=== PATIENT | male | born 1940 | race Caucasian/White ===

== ENCOUNTER 2022-11-25 07:38 | Emergency (ER) | payer OTHER, SELFPAY ==
[2022-11-25 07:40] VITALS: BP 138/82; PULSE 72; RESP 18; TEMP 36.6; O2SAT 98
[2022-11-25 07:55] VITALS: BP 135/79; O2SAT 98
--- NOTE | 2022-11-25 08:25 | ED.EXTPRO ---
HPI - Extremity Problem General Chief complaint: Extremity Problem,Nontraumatic Stated complaint: left hand infection Time Seen by Provider: 11/25/22 08:10 History of Present Illness HPI Narrative: 82-year-old male presented the emergency department for evaluation of a wound to his left hand. Patient states he was working on the yard and had a cut to his left hand. Patient was started Rocephin Sunday evening and took doses on and Sunday and states when he woke up this morning he noticed it had improved. Patient does complain of pain and swelling on the left lateral hand. Patient denies any pain extending into the fingers. Patient has normal range of motion. Related Data Allergies Allergy/AdvReac Type Severity Reaction Status Date / Time No Known Allergies Allergy Verified 11/25/22 07:54 Review of Systems Review of Systems: All systems reviewed & are unremarkable except as noted in HPI and below Exam Narrative: APPEARANCE: Well appearing, no pain, no distress, well-nourished. HEAD: normocephalic, atraumatic. EYES: PERRLA/EOMI, conjunctivae clear. NOSE: Normal no drainage NECK: Supple. No adenopathy, no masses. RESPIRATORY: Airway patent, respirations nonlabored. Clear to auscultation bilaterally, no rales, rhonchi, wheezing. CARDIOVASCULAR: Regular rate and rhythm without murmurs rubs or gallops. ABDOMINAL: Soft, nontender, nondistended, normal bowel sounds MUSCULOSKELETAL: Normal passive and active range of motion of the wrist and fingers, neurovascular intact NEURO: Alert. Cranial nerves II through XII intact. Good gait. Good coordination SKIN: Erythema over left lateral aspect of hand, no fluctuance, mild edema PSYCHIATRIC: Normal affect/mood. Course Course Emergency Course: 82-year-old male presented to ED for evaluation of infection of the left hand. Patient had been taking cephalexin and was switched to clindamycin. Patient was treated with an IV dose of clindamycin in the emergency department and then switched to p.o. clindamycin. Patient is afebrile and is not tachycardic. Patient was updated on the plan to change antibiotics and on reasons to return to the emergency department. All questions concerns were addressed. Vital Signs Vital signs: Vital Signs Temperature 97.8 F 11/25/22 07:40 Pulse Rate 72 11/25/22 07:40 Respiratory Rate 18 11/25/22 07:40 Blood Pressure 138/82 11/25/22 07:40 Pulse Oximetry 98 11/25/22 07:40 Oxygen Delivery Room Air 11/25/22 07:40 Temperature 97.8 F 11/25/22 07:40 Pulse Rate 66 11/25/22 09:40 Respiratory Rate 18 11/25/22 09:40 Blood Pressure 122/67 11/25/22 09:40 Pulse Oximetry 100 11/25/22 09:40 Oxygen Delivery Room Air 11/25/22 07:40 Discharge Plan Discharge Clinical Impression: Cellulitis Patient Disposition: Home, Self-Care Condition: Stable Instructions: Antibiotic Form, Cellulitis (ED) Additional Instructions: Stop taking the cephalexin. Start taking the clindamycin. Have close follow-up with your primary care physician. If you have any worsening symptoms then please call or return to the emergency department. Prescriptions: New clindamycin HCl 150 mg capsule 150 mg PO Q6H 10 Days Qty: 40 0RF Follow-up/Referrals: PHYSICIAN NOT ON STAFF,NONSTAFF [Primary Care Provider] -
[2022-11-25] MEDS: CLINDAMYCIN 600 MG/D5W 50 ML 600 MG/50 ML PIGGYBACK 100 MG IVPB (08:49)
[2022-11-25 09:40] VITALS: BP 122/67; PULSE 66; RESP 18; O2SAT 100
== END 2022-11-25 09:41 | disposition home or self-care (01) ==
PROVIDERS: Emergency Provider Emergency Medicine
DX: L03.114 Cellulitis of left upper limb (principal)
CPT/HCPCS: 96365; 96366; 99284

== ENCOUNTER → 2023-06-20 09:38 | Outpatient (CLI) | payer OTHER, SELFPAY ==
--- NOTE | ~2023-06-20 | MR_ITS ---
EXAMINATION: MR brain IAC wo/w con DATE: 06/20/2023 10:29 INDICATION: Sensorineural hearing loss bilaterally. TECHNIQUE: Magnetic resonance imaging (MRI) of the brain, brainstem, and internal auditory canals was performed without with 15 mL MultiHance intravenous contrast. COMPARISON: None. 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 There is an old lacunar infa rct in right caudate nucleus. There are scattered areas of nonspecific increased T2-weighted signal i ntensity in the cerebral white matter. There is no intracranial hemorrhage, acute infarction, or abno rmal intracranial mass lesion. The ventricles are normal in size. There are likely changes of ocular lens replacement surgeries. There is mild mucosal thickening in the paranasal sinuses. The internal a uditory canals, inner ears, and tympanic cavities are normal. The mastoid air cells are normal. IMPRESSION: 1. 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 2. Moderate nonspecific cerebral white matter disease, which likely represents chronic small vessel i schemic disease. Reviewed, dictated and finalized at location A. 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 2. Moderate nonspecific cerebral white matter disease, which likely represents chronic small vessel ischemic disease.
== END ==
PROVIDERS: PCP Nurse Practitioner Family; Visit Provider Nurse Practitioner Family
DX: H90.3 Sensorineural hearing loss, bilateral (principal); I25.2 Old myocardial infarction; R90.82 White matter disease, unspecified
CPT/HCPCS: 70553; A9577

== ENCOUNTER 2025-01-11 22:58 | Observation (INO) | payer OTHER, SELFPAY ==
--- NOTE | ~2025-01-11 | CT_ITS ---
CT of the Abdomen and Pelvis: Indication: Abdominal pain, GI bleed Technique: 2.5 mm axial scans were obtained through the abdomen and pelvis following intravenous adm inistration of 100 cc of Omnipaque 350. Dose reduction technique was used on this scan by utilizing a utomated exposure control and iterative reconstruction technique. The dose-length product (DLP) was 3 53.35 mGy-cm. Findings: Scans through the lung bases are unremarkable. The liver, spleen, adrenals and kidneys are within normal limits. Multiple gallstones are present. Po ssible 2 cm mildly enhancing mass at the tail of pancreas (axial image 44). No evidence of aortic ane urysm. No lymphadenopathy. No bowel obstruction or bowel wall thickening. Small fat-containing umbilical hernia present. Evidenc e of postoperative change the right colon. No definite evidence for active GI bleed identified.. Images through the pelvis were performed. Urinary bladder unremarkable. Prostate gland is markedly en larged. No ascites. Impression: No CT evidence for active GI bleed. Questionable 2 cm mass in the tail the pancreas. Follow-up pancreatic mass protocol CT or MR recommen ded. Cholelithiasis. Markedly enlarged prostate gland. Reviewed, dictated and finalized at location . Impression: No CT evidence for active GI bleed. Questionable 2 cm mass in the tail the pancreas. Follow-up pancreatic mass prot ocol CT or MR recommended. Cholelithiasis. Markedly enlarged prostate gland.
--- NOTE | ~2025-01-11 | MR_ITS ---
EXAMINATION: MR MRCP wo/w con/w 3D wo ind DATE: 01/13/2025 12:14 INDICATION: Pancreatic lesion TECHNIQUE: Magnetic resonance imaging (MRI) of the abdomen was performed without and with 14 mL Multi shaka intravenous contrast. Sequences included coronal T2-weighted SS-FSE, coronal T2-weighted FS SS- FSE, coronal T2-weighted FS FIESTA, axial T2-weighted FS FIESTA, axial T2-weighted FIESTA, sagittal T 2-weighted SS-FSE, axial T1-weighted dual-echo FSPGR, axial T2-weighted SS-FSE, axial T1-weighted LAV A, axial T2-weighted STIR FSE. Thick-slab T2-weighted FRFSE-XL images were obtained for magnetic reso nance cholangiopancreatography (MRCP). Rotating maximum intensity projection 3-D reconstructions of t he volumetric data were created by the technologist. Postcontrast sequences included a time course of axial T1-weighted LAVA. COMPARISON: CT dated 01/12/2025 FINDINGS: ABDOMEN MRI: Heart size is normal. No pericardial or pleural effusion. Scattered tiny lesions with absent signal i n the liver and spleen corresponding to calcified granulomata on the prior CT. There are several gall stones within the proximal gallbladder. No gallbladder wall thickening or pericholecystic inflammator y stranding to suggest acute cholecystitis bilateral adrenal glands are normal. There are few bilater al renal cysts the largest at the upper pole the left kidney measuring 2.1 cm. Pancreas is normal wit h homogeneous parenchymal signal and enhancement on all phases of the post contrast imaging. Status p ost right hemicolectomy with ileocolic anastomosis in the right upper quadrant. No bowel obstruction. No pathologically enlarged abdominal or upper pelvic lymphadenopathy. Small fat-containing umbilical hernia. Moderate to severe lumbar spondylosis. ABDOMEN MRCP: Common bile duct is normal in caliber measuring to 4-5 mm. No evident choledocholithiasis. No intrahe patic biliary ductal dilation. The main pancreatic duct also is normal measuring 2-2.5 mm in maximal diameter at the head of the pancreas. IMPRESSION: 1. Cholelithiasis relatively otherwise normal MRCP with no biliary ductal dilation or choledocholithi asis. 2. Normal pancreas with homogeneous parenchymal signal and enhancement. Specifically no mass identifi ed at the region of concern at the tail of the pancreas. 3. Small fat-containing umbilical hernia. Reviewed, dictated and finalized at location A. IMPRESSION: 1. Cholelithiasis relatively otherwise normal MRCP with no biliary ductal dilat ion or choledocholithiasis. 2. Normal pancreas with homogeneous parenchymal signal and enhancement. Specifi bertin no mass identified at the region of concern at the tail of the pancreas. 3. Small fat-containing umbilical hernia.
--- OUTSIDE RECORDS SUMMARY | 2025-01-11 22:59 | XMS_ITS | Clinical Summary ---
Author Organization [facility] Address [address] [place] [address] Care Team Providers Care Nutritional Services Host Name Role Phone Ame Stephen KimbleAngel Primary Care Provider [phone] iHna Diaz MD Unavailable [phone] Hina Diaz MD Unavailable [phone] Source Comments [facility],non-owned Affiliates and Associated Physician Practices is amultiple site organization consisting of ambulatory clinics and hospital sitesin [place], [place], [place] and [place]. This disclosure is being madepursuant to the Care Everywhere program and may not contain all information available regarding this patient. Last updated 18.[facility] Allergies No known active allergies Medications * Be aware that medications may not be up to date on this document. Alwaysverify current medications with the patient. mesalamine EC (ASACOL) 400 MG tablet Take 1,200 mg by mouth 2 times daily. Active finasteride (PROSCAR) 5 MG tablet Take 5 mg by mouth once daily. Active omeprazole (PRILOSEC) 40 MG capsule Take 40 mg by mouth daily before breakfast. 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/2017 Gastro-esophageal reflux disease without esophag itis 09/25/2017 Hypertrophy of prostate with urinary obstruction and other lower urinary tract symptoms (LUTS) 09/25/2017 Mixed hyperlipidemia 09/25/2017 Social History Tobacco Use Types Packs/Day Years Used Date Smoking Tobacco: Never Alcohol Use Standard Drinks/Week Comments Yes 0 (1 standard drink = 0.6 oz pur e alcohol) social Sex and Gender Information Value Date Recorded Sex Assigned at Not on file Legal Sex Male 5:50 AM PARAMEDIC RN Gender Identity Not on file Sexual Orientation Not on file Last Filed Vital Signs Vital Sign Reading Time Taken Comments Blood Pressure 121/70 09/16/2011 3:19 PM CDT Pulse 77 09/16/2011 3:19 PM CDT Temperature 36.7 C (98 F) 09/16/2011 3:19 PM CDT Respiratory Rate 18 09/16/2011 3:19 PM CDT Oxygen Saturation 98% 09/16/2011 3:19 PM CDT Inhaled Oxygen Concentration - - Weight 77.1 kg (170 lb) 05/08/2018 8:04 AM PARAMEDIC RN Height 165.1 cm (5' 5) 05/08/2018 8:04 AM PARAMEDIC RN Body Mass Index 28.29 05/08/2018 8:04 AM PARAMEDIC RN Plan of Treatment Health Maintenance Due Date Last Done Comments DTAP/TDAP/TD VACCINES (1 - Tdap) 1960 PNEUMOCOCCAL VACCINE 50+ (1 of 1 - PCV) 1991 ZOSTER VACCINE (1 of 2) 1991 Respiratory Syncytial Virus (RSV) Vaccine Pt: or over 60 yrs (1 - 1-dose 75+ series) 2016 COVID-19 VACCINE ( - season) 2024 04/18/2021, 08/24/2020, 08/03/2020 DEPRESSION SCREENING 06/11/2024 INFLUENZA VACCINE (#1) 2025 , 03/26/2017, 05/02/2016, Additional history exists HEPATITIS B VACCINE Aged Out No longe r eligible based on patient's age to complete this topic HIB VACCINE Aged Out No longer eligi ble based on patient's age to complete this topic HPV VACCINE Aged Out No longer eligi ble based on patient's age to complete this topic MENINGOCOCCAL (Group B) VACCINE SHARED DECISION-MAKING Aged Out No longer eligible based on patient's age to complete this topic MENINGOCOCCAL GROUPS A/C/Y/W VACCINE Aged Out No longer eligible based on patient's age to complete this topic Insurance [facility] MEDICARE Advance Directives * FULL RESUSCITATION (Latest Code Status on File) Date Activated Date Inactivated Comments 09/16/2011 1:25 AM 09/17/2011 4:42 AM Care Teams Nutritional Services Host Relationship Specialty Start Date End Date Stephen Mccloud DO [address] [place] [address] PCP - General 10/16/08 [place] [id number] [place] [id number] Orthopedic Surgery 09/25/17 [place] [id number] [place] [address] Orthopedic Surgery 09/25/17
[2025-01-11 23:03] VITALS: BP 131/66; PULSE 93; RESP 17; TEMP 36.4; O2SAT 99
[2025-01-12] VITALS (21 sets, daily range): BP systolic 95–149; BP diastolic 43–71; PULSE 52–88; RESP 11–20; TEMP 36.1–36.9; O2SAT 97–100; BMI 25.1
[2025-01-12 01:21] LABS: Hematocrit 21.4 % (42.0-52.0); Immature Granulocyte Percent A 0.5 % (0-0.5); Lymphocytes Absolute Auto 0.92 K/mm3 (0.9-3.2); Mean Corpuscular HGB Conc 28.5 g/dl (32-36); Mean Corpuscular Hemoglobin 23.6 pg (26-34); Mean Corpuscular Volume 82.6 fl (80-100); Nucleated Red Blood Cells Absolute Auto 0.000 K/mm3 (0.0-0.012); Nucleated Red Blood Cells Perc 0.0 % (0.0-0.2); Platelet Count Result 133 k/mm3 (150-375); Red Blood Count 2.59 M/mm3 (4.6-6.20); White Blood Count 7.4 K/mm3 (4.5-10.0)
[2025-01-12 01:26] LABS: Alanine Aminotransferase 15 U/L (6-50); Albumin Level 3.3 g/dL (3.5-5.1); Alkaline Phosphatase 54 U/L (38-126); Anion Gap 6 mmol/L (4-12); Aspartate Amino Transferase 22 U/L (17-59); Bilirubin,Total 0.3 mg/dL (0.2-1.3); Blood Urea Nitrogen 29 mg/dL (9-20); Calcium 8.5 mg/dL (8.4-10.2); Carbon Dioxide 23 mmol/L (22-30); Chloride 104 mmol/L (98-107); Estimated CRCL calculation 26 ml/min; Estimated Glomerular Filt Rate 38; Glucose 123 mg/dL (65-110); INR 1.3; Lipase 62 U/L (23-300); Potassium 4.8 mmol/L (3.4-5.0); Prothrombin Time 16.4 Seconds (11.1-14.7); Sodium 133 mmol/L (137-145); Total Protein 5.5 g/dL (6.3-8.2)
[2025-01-12 01:27] LABS: Partial Thromboplastin Time 29.4 Seconds (22.3-36.8)
[2025-01-12 02:07] LABS: Hemoglobin 6.1 g/dL (14.0-18.0)
[2025-01-12 02:09] LABS: Anisocytosis 2+; Hypochromasia 2+
[2025-01-12 02:10] LABS: Schistocytes Rare
--- OUTSIDE RECORDS SUMMARY | 2025-01-12 02:38 | XMS_ITS | Clinical Summary ---
Author Organization [facility] Address [address] [place] [address] Care Team Providers Care Pharmaceutical Worker Name Role Phone Ame Stephen KimbleAngel Primary Care Provider [phone] Hina Diaz MD Unavailable [phone] Hina Diaz MD Unavailable [phone] Source Comments [facility],non-owned Affiliates and Associated Physician Practices is amultiple site organization consisting of ambulatory clinics and hospital sitesin [place], [place]. This disclosure is being madepursuant to the Care Everywhere program and may not contain all information available regarding this patient. Last updated 18.[facility] Allergies No known active allergies Medications * [...] on file Legal Sex Male 5:50 AM SUPERVISOR METALIZING Gender Identity Not on file Sexual Orientation [...] 77.1 kg (170 lb) 05/08/2018 8:04 AM SUPERVISOR METALIZING Height 165.1 cm (5' 5) 05/08/2018 8:04 AM SUPERVISOR METALIZING Body Mass Index 28.29 05/08/2018 8:04 AM SUPERVISOR METALIZING Plan of Treatment Health Maintenance Due Date [...] patient's age to complete this topic Insurance [facility] MEDICARE Advance Directives * FULL RESUSCITATION (Latest Code Status on File) Date Activated Date Inactivated Comments 09/16/2011 1:25 AM 09/17/2011 4:42 AM Care Teams Pharmaceutical Worker Relationship Specialty Start Date End Date Stephen Mccloud DO [address] [place] [address] PCP - General 10/16/08 [place] [id number] [place] [id number] Orthopedic Surgery 09/25/17 [place] [id number] [place] [address] Orthopedic Surgery 09/25/17
--- NOTE | 2025-01-12 03:35 | ED.GIBLEED ---
HPI - GI Bleed General Chief complaint: GI Bleed Stated complaint: rectal bleeding Time Seen by Provider: 01/12/25 02:19 Source: patient and family Limitations: no limitations History of Present Illness HPI Narrative: Patient presents with report of rectal bleeding that started yesterday. Initially reported bright red blood per rectum but then notes that he started having hematochezia, approximately fiber 6 episodes in total. The bleeding seems to be getting worse and although initially without abdominal pain he did note that he was starting to develop some slight abdominal discomfort in the left lower quadrant. He had an episode of dizziness. He reports this last colonoscopy was in May of 2024 reportedly normal. Has a primary care physician in [place]. He does occasionally drink alcohol although states lately none. He states that he required a blood transfusion 20+ years ago as he had a history a GI bleed that required some removal ir section intestine, and believes possibly small bowel. Not on anticoagulation. He does report that a few weeks ago his primary care physician had him start taking ibuprofen for pain. He takes 4 tablets of this a day. He is also on iron pills. History of diverticulitis. Denies being on chronic steroids. Pains 2 or 3/10 in severity. Related Data Home Medications ?Medication ?Instructions ?Recorded ?Confirmed ?Last Taken ?Type cholecalciferol (vitamin D3) 50 2,000 unit PO DAILY 01/12/25 01/12/25 01/11/25 History mcg (2,000 unit) capsule ferrous sulfate 325 mg (65 mg 325 mg PO BID 01/12/25 01/12/25 01/11/25 History iron) tablet finasteride 5 mg tablet 5 mg PO DAILY 01/12/25 01/12/25 01/11/25 History ibuprofen 800 mg tablet 800 mg PO Q6-8H PRN pain 01/12/25 01/12/25 01/11/25 History mecobalamin (vitamin B12) 1,000 1,000 mcg PO DAILY 01/12/25 01/12/25 01/11/25 History mcg chewable tablet meloxicam 15 mg tablet 15 mg PO DAILY 01/12/25 01/12/25 01/11/25 History omeprazole 40 mg capsule,delayed 40 mg PO DAILY 01/12/25 01/12/25 01/11/25 History release primidone 50 mg tablet 25 mg PO BID 0801/12/25 01/11/25 History psyllium husk 0.52 gram capsule 0.52 g PO HS 01/12/25 01/12/25 Unknown History (Daily Fiber) tizanidine 2 mg tablet 2 mg PO TID PRN muscle spasticity 01/12/25 01/12/25 Unknown History Allergies Allergy/AdvReac Type Severity Reaction Status Date / Time No Known Allergies Allergy Verified 01/12/25 09:35 [facility] Past Medical History Medical History (Updated 01/12/25 @ 18:27 by Jolynn Murillo MD) BPH (benign prostatic hyperplasia) Diverticulosis Ulcerative colitis CVA (cerebral vascular accident) 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 Quit tobacco 1964 after smoking 1/2ppdx 3yrs. Drinks 2-3 alcoholic drinks per week. Denies hx of drug use. Code status - full Surrogate decision maker - Smoking status: Never smoker Alcohol intake: current Drinks per week: 3 Substance use type: does not use Lack of Transportation: No Lack of Food: Never True Current Housing: I Have Housing Concerned About Future Housing: No Difficulty Paying Gas/Electric Bills: No Difficulty Paying for Meds: No Currently Unemployed: No Education: Decline to Answer Difficulty w/ Childcare or Family Care: No Spiritual care concerns: No Exam Narrative: GENERAL: Well-appearing, well-nourished, and in no acute distress. HEAD: Normocephalic, atraumatic. EYES: Non injected, non icteric ENT: Nares clear, no rhinorrhea or epistaxis. Gross auditory acuity intact. NECK: Supple. No meningismus. CHEST: Speaking in full sentences. No respiratory distress. HEART: Regular rate and rhythm. . ABDOMEN: Soft, nondistended. No rigidity or guarding. Not peritoneal; BLANKA performed with present as department head college or university. Some skin tags but no active BRBPR. Normal rectal tone w/o masses. Brown stool on gloved finger. FOBT/guiaic positive x2 windows. EXTREMITIES: Normal range of motion. No lower extremity edema. SKIN: Warm, dry, no rash. NEURO: No focal deficits. Alert and oriented. Answering questions. Following commands. Normal speech without aphasia or dysarthria. PSYCH: Normal mood and affect. Course Vital Signs Vital signs: Vital Signs Temperature 97.5 F L 01/11/25 23:03 Pulse Rate 93 01/11/25 23:03 Respiratory Rate 17 01/11/25 23:03 Blood Pressure 131/66 01/11/25 23:03 Pulse Oximetry 99 01/11/25 23:03 Oxygen Delivery Room Air 01/11/25 23:03 Temperature 98.5 F 01/12/25 14:51 Pulse Rate 70 01/12/25 14:51 Respiratory Rate 16 01/12/25 14:51 Blood Pressure 118/55 L 01/12/25 14:51 Pulse Oximetry 97 01/12/25 14:59 Oxygen Delivery Room Air 01/12/25 14:59 MDM - GI Bleed MDM Narrative Medical decision making narrative: The patient is a 84 year old who comes to the emergency department with rectal bleeding that started yesterday (two days ago at this point). Initially BRBPR w/o abdominal pain but progressing to hematochezia with some mild LLQ abdominal tenderness. History diverticulitis as well as a history a GI bleed and partial bowel resection. Not on anticoagulation or steroids although he did start recently taking 4 tablets of ibuprofen per day starting a few weeks ago. Had a colonoscopy in 2023 which he reports was normal. He does drink alcohol although lately none. In the ED they are initially afebrile and hemodynamically stable without tachycardia or hypotension. Based on history and physical, suspect lower GI bleed so will go ahead and order CBC, CMP, coagulation studies, lactate, and type and screen. My differential diagnosis at this time is diverticulosis versus angiodysplasia versus Meckel's diverticulum. Colon cancer is also possible. Possibly ischemic bowel or anal fissure. Hematochezia makes IBD/infectious diarrhea possible. Possibly hemorrhoids though less likely given degree of bleeding. Henderson Score (predicts readmission risk in patients with acute lower GI bleeding) Based on age, sex, previous lower GI bleed admission, BLANKA findings, HR, SBP, and initial Hgb: 31?points 0-1?% Probability of safe discharge (absence of rebleeding, blood transfusion, therapeutic intervention, 28 day readmission, or ). Discharge NOT recommended. Consider admission with further workup and resuscitation as necessary. He has a normocytic anemia with initial hemoglobin 6.1. No prior for comparison although he states that when he had outpatient labs performed approximately 2 weeks ago it was 9 point something. Mild thrombocytopenia. INR 1.3. BUN to Cr ratio = 16.76. Blood product transfusion I have discussed the proposed blood product transfusion with the patient. I have informed the patient regarding potential risks of blood product transfusion which, though rare, include transfusion reaction, hepatitis, and HIV. The patient has been given the opportunity to ask questions about the need to be transfused and possible outcomes of not receiving this treatment. Patient has verbally agreed to undergo transfusion. I obtained signed consent and place it in the patient's chart. Order was placed for transfusion of 1 unit of packed red blood cells. Creatinine is 1.73 with no prior for comparison. No history in the EMR to note if history of CKD. Will for now presume KEON (though possibly CKD versus KEON on CKD) and give 1L IV fluids. Lactic acid only mildly elevated, has not yet received IV fluids at the time of that lab draw. Confirm full code status with patient and his at bedside. Discussed patient with GI Dr Shannon who concurs with admission. 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 1 more U pRBC ordered. Discussed patient with hospitalist Dr. Brunner who accepts admission, recommends ordering 2 more units, 3 units pRBC in total given no change initially. Differential Diagnosis Differential diagnosis: Likely hemorrhoids, infectious diarrhea, gastritis, Upper gastrointestinal hemorrhage, Lower gastrointestinal hemorrhage, hematochezia and melena Lab Data Attestation: I reviewed the patient's lab results. 01/12/25 10:26 01/12/25 00:56 Labs: Lab Results 01/12/25 01/12/25 01/12/25 Range/Units 00:56 03:27 04:59 WBC 7.4 (4.5-10.0) K/mm3 RBC 2.59 L (4.6-6.20) M/mm3 Hgb 6.1 L* (14.0-18.0) g/dL Hct 21.4 L (42.0-52.0) % MCV 82.6 (80-100) fl MCH 23.6 L (26-34) pg MCHC 28.5 L (32-36) g/dl RDW 27.0 H (11.5-14.5) % Plt Count 133 L (150-375) k/mm3 MPV 9.9 (7.4-10.4) fl Immature Gran % (Auto) 0.5 (0-0.5) % Neut % (Auto) 79.3 H (45.5-73.1) % Lymph % (Auto) 12.5 L (18.3-44.2) % [place] % (Auto) 6.5 (2.6-8.5) % Eos % (Auto) 0.8 (0-4.4) % Baso % (Auto) 0.4 (0.2-1.2) % Lymph # (Auto) 0.92 (0.9-3.2) K/mm3 [place] # (Auto) 0.5 (0.1-0.6) K/mm3 Eos # (Auto) 0.1 (0-0.3) K/mm3 Baso # (Auto) 0.0 (0.0-0.1) K/mm3 Abs Immat Gran (auto) 0.04 H (0.00-0.031) K/mm3 Absolute Neuts (auto) 5.8 (1.3-6.7) K/mm3 Absolute Nucleated RBC 0.000 (0.0-0.012) K/mm3 Band Neutrophils % Not Reportable Nucleated RBC % 0.0 (0.0-0.2) % Platelet Estimate Slightly decreased (Adequate) Hypochromasia 2+ Anisocytosis 2+ Schistocytes Rare PT 16.4 H (11.1-14.7) Seconds INR 1.3 APTT 29.4 (22.3-36.8) Seconds Sodium 133 L (137-145) mmol/L Potassium 4.8 (3.4-5.0) mmol/L Chloride 104 (98-107) mmol/L Carbon Dioxide 23 (22-30) mmol/L Anion Gap 6 (4-12) mmol/L BUN 29 H (9-20) mg/dL Creatinine 1.73 H (0.7-1.3) mg/dL Estim Creat Clear Calc 26 ml/min Estimated GFR 38 L (59 - ) Glucose 123 H (65-110) mg/dL Lactic Acid 2.1 H (0.7-2.0) mmol/L Calcium 8.5 (8.4-10.2) mg/dL Total Bilirubin 0.3 (0.2-1.3) mg/dL AST 22 (17-59) U/L ALT 15 (6-50) U/L Alkaline Phosphatase 54 (38-126) U/L Total Protein 5.5 L (6.3-8.2) g/dL Albumin 3.3 L (3.5-5.1) g/dL Lipase 62 (23-300) U/L Urine Color Yellow (Yellow) Urine Appearance Clear (Clear) Urine pH 5.5 (5.0-9.0) Ur Specific [place] 1.017 (1.001-1.035) Urine Protein Negative (Negative) mg/dL Urine Glucose (UA) Negative (Negative) mg/dL Urine Ketones Negative (Negative) mg/dL Ur Blood (Man) Negative (Negative) Urine Nitrate Negative (Negative) Urine Bilirubin Negative (Negative) Urine Urobilinogen 0.2 (<2.0) mg/dL Add Ur Microanalysis Reviewed Leukocyte Esterase Rfl 2+ H (Negative) PAM/UL Urine RBC 0-2 (0-2) /hpf Urine WBC 0-5 (0-3) /hpf Ur Squamous Epith Cells Occasional (Few) /hpf Urine Bacteria None seen /hpf Urine Casts 6-10 Blood Type B Positive Antibody Screen Negative Crossmatch See Detail 01/12/25 Range/Units 07:19 WBC (4.5-10.0) K/mm3 RBC (4.6-6.20) M/mm3 Hgb 6.1 L* (14.0-18.0) g/dL Hct 21.0 L (42.0-52.0) % MCV (80-100) fl MCH (26-34) pg MCHC (32-36) g/dl RDW (11.5-14.5) % Plt Count (150-375) k/mm3 MPV (7.4-10.4) fl Immature Gran % (Auto) (0-0.5) % Neut % (Auto) (45.5-73.1) % Lymph % (Auto) (18.3-44.2) % [place] % (Auto) (2.6-8.5) % Eos % (Auto) (0-4.4) % Baso % (Auto) (0.2-1.2) % Lymph # (Auto) (0.9-3.2) K/mm3 [place] # (Auto) (0.1-0.6) K/mm3 Eos # (Auto) (0-0.3) K/mm3 Baso # (Auto) (0.0-0.1) K/mm3 Abs Immat Gran (auto) (0.00-0.031) K/mm3 Absolute Neuts (auto) (1.3-6.7) K/mm3 Absolute Nucleated RBC (0.0-0.012) K/mm3 Band Neutrophils % Nucleated RBC % (0.0-0.2) % Platelet Estimate (Adequate) Hypochromasia Anisocytosis Schistocytes PT (11.1-14.7) Seconds INR APTT (22.3-36.8) Seconds Sodium (137-145) mmol/L Potassium (3.4-5.0) mmol/L Chloride (98-107) mmol/L Carbon Dioxide (22-30) mmol/L Anion Gap (4-12) mmol/L BUN (9-20) mg/dL Creatinine (0.7-1.3) mg/dL Estim Creat Clear Calc ml/min Estimated GFR (59 - ) Glucose (65-110) mg/dL Lactic Acid 1.1 (0.7-2.0) mmol/L Calcium (8.4-10.2) mg/dL Total Bilirubin (0.2-1.3) mg/dL AST (17-59) U/L ALT (6-50) U/L Alkaline Phosphatase (38-126) U/L Total Protein (6.3-8.2) g/dL Albumin (3.5-5.1) g/dL Lipase (23-300) U/L Urine Color (Yellow) Urine Appearance (Clear) Urine pH (5.0-9.0) Ur Specific [place] (1.001-1.035) Urine Protein (Negative) mg/dL Urine Glucose (UA) (Negative) mg/dL Urine Ketones (Negative) mg/dL Ur Blood (Man) (Negative) Urine Nitrate (Negative) Urine Bilirubin (Negative) Urine Urobilinogen (<2.0) mg/dL Add Ur Microanalysis Leukocyte Esterase Rfl (Negative) PAM/UL Urine RBC (0-2) /hpf Urine WBC (0-3) /hpf Ur Squamous Epith Cells (Few) /hpf Urine Bacteria /hpf Urine Casts Blood Type Antibody Screen Crossmatch Imaging Data Radiologist's impression: Impressions Abdomen/Pelvis CT 01/12/25 06:02 Impression: No CT evidence for active GI bleed. Questionable 2 cm mass in the tail the pancreas. Follow-up pancreatic mass protocol CT or MR recommended. Cholelithiasis. Markedly enlarged prostate gland. Discharge Plan Discharge Clinical Impression: GI bleed, Normocytic anemia, Thrombocytopenia, KEON (acute kidney injury), Pancreatic mass, Cholelithiasis, Enlarged prostate, Blood transfusion during current hospitalisation Patient Disposition: Still a Patient Condition: Stable Time of Disposition: 07:38
[2025-01-12 03:46] LABS: Add Urine Microscopic? YES; Appearance Urine Clear (Clear); Glucose Urine UA Negative (Negative); Leukocyte Esterase Ur 2+ LEU/UL (Negative); Need Manual Microscopic Reviewed; Nitrate Urine Negative (Negative); Specific Grav Ur 1.017 (1.001-1.035)
[2025-01-12] MEDS: SODIUM CHLORIDE 0.9% IV 1,000 ML 999 ML IV CONT (05:20)
[2025-01-12] MEDS: TUBING, BLOOD SET 1 EACH XX (05:21)
[2025-01-12] MEDS: SODIUM CHLORIDE 0.9% IV 250 ML 30 ML IV CONT ×3 (05:21→17:28)
[2025-01-12 07:26] LABS: Hematocrit 21.0 % (42.0-52.0)
[2025-01-12 07:27] LABS: Hemoglobin 6.1 g/dL (14.0-18.0)
--- NOTE | 2025-01-12 07:48 | PM.IMHP ---
H&P: HPI History of Present Illness Date/Time: 01/12/25 07:48 Chief Complaint: Rectal bleeding Narrative: 84yo male with hx of CVA, BPH, diverticulosis and ulcerative colitis here for rectal bleeding. Patient had a bowel resection in 2021 at [facility] ('the upper part') for rectal bleeding. He denies hx of PUD and has not had an EGD. His last colonoscopy was May 2023 for recurrent rectal bleeding which showed hemorrhoids but no polyps. He was on mesalamine for his UC but this was stopped by his doctor ini July 2024. He was seen by his doctor about 3 weeks ago and found to be anemic with a Hgb in the 9 range. He was guaiac negative at that time. He was started on iron which has since caused dark stools and constipation. He does take omeprazole daily. Also about 3-4 weeks ago, he was started on Ibuprofen 800mg 4x/day for back and hip arthritic pain. He denies he has RA. He has been using OTC medications for his constipation but not enemas. Three days ago, he began to have bright red blood per rectum admixed with stool. He called his doctor 2 days ago and hydrocortisone suppositories were called in. He continued to have 2-3 bloody BMs per day. He was developing lightheadedness with standing but no CP, SOB, palpitations, cough. nausea or vomiting. He was having lower abdominal mildly crampy pain that improved with BM. No fever or chills. No recent travel. Has city water. No family hx of GI cancer. He presented to the ED for evaluation. In the ED, he was hemodynamically stable. Pertinent labs: normocytic with Hgb 6.1 with evidence of iron deficiency (high RDW, low MCH/MCHC), plt count 133K with normal WBC and rare schistocytes; INR 1.3, Na 133, BUN 29, Cr 1.73, TP 5.5 and Albumin 3.3. Lactic and Lipase was normal. UA was negative for UTI. CT A/P with contrast showing a questionable 2 cm mass in the tail the pancreas, cholelithiasis and a markedly enlarged prostate gland but no CT evidence for active GI bleed. UCx ordered. Patient was guaiac positive. Patient was typed and crossed and transfused 1U PRBC. Repeat Hgb was unchanged at 6.1 so repeat transfusion was ordered. GI consulted. Patient was admitted for further care. 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 Quit tobacco 1965 after smoking 1/2ppdx 3yrs. Drinks 2-3 alcoholic drinks per week. Denies hx of drug use. Code status - full Surrogate decision maker - Meds Home Medications and Allergies Home Medications ?Medication ?Instructions ?Recorded ?Confirmed ?Type clindamycin HCl 150 mg capsule 150 mg PO Q6H 10 days #40 caps 11/25/22 Rx Allergies Allergy/AdvReac Type Severity Reaction Status Date / Time No Known Allergies Allergy Verified 01/11/25 23:05 Vital Signs Vital Signs - 24 hr 01/11/25 23:03 01/12/25 01:30 01/12/25 02:01 Temperature 97.5 F L Pulse Rate 93 77 64 Respiratory Rate 17 17 19 Blood Pressure 131/66 120/62 95/43 L Pulse Oximetry 99 100 97 Oxygen Delivery Room Air 01/12/25 04:38 01/12/25 04:53 01/12/25 05:01 Temperature 97.7 F 98.1 F Pulse Rate 85 85 85 Respiratory Rate 16 20 15 Blood Pressure 117/54 L 120/53 L 115/54 L Pulse Oximetry 100 98 100 Oxygen Delivery 01/12/25 05:53 01/12/25 06:41 Temperature 98.0 F Pulse Rate 80 82 Respiratory Rate 11 L 20 Blood Pressure 108/55 L 107/60 Pulse Oximetry 100 97 Oxygen Delivery Exam Narrative: AF 98.0 107/60 82 20 97% ra Gen - well appearing male in no acute respiratory distress who is nontoxic-appearing lying semi recumbent in bed HEENT - normocephalic. Atraumatic. Pupils equal round and reactive. Extraocular motions intact. Sclera clear and anicteric. Nares patent. Oropharynx was poorly visualized. No oral lesions. Moist mucous membranes. Tongue was midline. Palate ezekiel symmetrically. No facial asymmetry. Neck - neck was supple. No dominant adenopathy, thyromegaly or masses. Chest - lungs are clear to auscultation bilaterally. No wheezes or crackles. CV - heart was regular rate and rhythm. S1-S2. No murmurs gallops or rubs. Abd - abdomen was soft. Nontender. Nondistended. Positive bowel sounds. No organomegaly or masses. Ext - no clubbing, cyanosis or edema. 2+ DP pulses bilaterally. Neuro - patient is alert and oriented x4. Strength is 5/5 in both upper and lower extremities. Cranial nerves 2-12 are intact. Speech is clear. Psych - normal mood and affect. Patient is pleasant and cooperative. Skin - warm and dry. No rashes noted. H&P: Results Labs Labs: Short CBC 01/12/25 01/12/25 Range/Units 00:56 07:19 WBC 7.4 (4.5-10.0) K/mm3 Hgb 6.1 L* 6.1 L* (14.0-18.0) g/dL Hct 21.4 L 21.0 L (42.0-52.0) % Plt Count 133 L (150-375) k/mm3 BMP 01/12/25 00:56 Sodium 133 L Potassium 4.8 Chloride 104 Carbon Dioxide 23 BUN 29 H Creatinine 1.73 H Glucose 123 H Calcium 8.5 Liver Function 01/12/25 Range/Units 00:56 Total Bilirubin 0.3 (0.2-1.3) mg/dL AST 22 (17-59) U/L ALT 15 (6-50) U/L Alkaline Phosphatase 54 (38-126) U/L Albumin 3.3 L (3.5-5.1) g/dL Urine 01/12/25 Range/Units 03:27 Urine Color Yellow (Yellow) Urine Appearance Clear (Clear) Urine pH 5.5 (5.0-9.0) Ur Specific [place] 1.017 (1.001-1.035) Urine Protein Negative (Negative) mg/dL Urine Glucose (UA) Negative (Negative) mg/dL Assessment and Plan Assessment and plan (1) GI bleed: Code(s): K92.2 - Gastrointestinal hemorrhage, unspecified Status: Acute Assessment and Plan: Patient with black stools since starting iron and has developed BRBPR now. Has been on high dose of ibuprofen so concern for upper GI blood loss. The BRBPR probably related to hemorrhoids. Hgb 6.1 and was unchanged after 1U PRBC. Plan to transfuse with 2U PRBC. GI consulted. Patient NPO so hopefully he could get EGD today. Stop Ibuprofen Protonix IV. (2) Normocytic anemia: Code(s): D64.9 - Anemia, unspecified Status: Acute Assessment and Plan: Normocytic with some evidence of iron deficiency probably from occult blood loss. Iron studies not helpful since he is currently receiving his 2nd unit. Serial HH once transfuion complete Transfuse to keep Hgb>7 (3) Pancreatic mass: Code(s): K86.89 - Other specified diseases of pancreas Status: Acute Assessment and Plan: CT showing a questionable 2 cm mass in the tail the pancreas. Lipase normal. He will need MRI abd to verify. Hold off for now until current issue is more stable. (4) KEON (acute kidney injury): Code(s): N17.9 - Acute kidney failure, unspecified Status: Acute Assessment and Plan: BUN 29, Cr 1.73 on admission. No baseline to compare BUN elevation can be related to GI bleed. Follow. Obtain old lab work (5) Thrombocytopenia: Code(s): D69.6 - Thrombocytopenia, unspecified Status: Acute Assessment and Plan: Platelet count low at 133K. Unclear if acute of chronic. Possibly related to GI bleeding with consumption. Follow. Request old labs. (6) Cholelithiasis: Code(s): K80.20 - Calculus of gallbladder without cholecystitis without obstruction Status: Acute Assessment and Plan: Cholelithiasis Noted by CT. No symptoms. Follow clinically. (7) BPH (benign prostatic hyperplasia): Code(s): N40.0 - Benign prostatic hyperplasia without lower urinary tract symptoms Status: Acute Assessment and Plan: Patient with markedly enlarged prostate gland. He does take finesteride but not tamsulosin. Monior for evidence of urine retention. resume home meds. Keep patieint up and ambulating as much as possible. (8) Ulcerative colitis: Code(s): K51.90 - Ulcerative colitis, unspecified, without complications Status: Acute Assessment and Plan: As above. He has been off his mesalamine since July. He denies GI symptoms since coming off his medications up until these current complaints. GI consulted Plan DVT prophylaxis - SCDs Code status - full Hospitalist [facility] Advance Care Plan I have confirmed that the patient's Advanced Care Plan is present, code status is documented, or surrogate decision maker is listed in patient medical record.: Yes Medication Reconciliation I have utilized all available resources to obtain, update and review the patients current medications (includes all prescriptions, OTC, herbals, cannabis, and nutritional supplements).: Yes
[2025-01-12] MEDS: PANTOPRAZOLE SODIUM IV 40 MG VIAL IV PUSH ×2 (08:14→21:32)
--- NOTE | 2025-01-12 08:17 | WPDGICN ---
Assessment and Plan Assessment and plan (1) GI bleed: Code(s): K92.2 - Gastrointestinal hemorrhage, unspecified Status: Acute (2) Ulcerative colitis: Code(s): K51.90 - Ulcerative colitis, unspecified, without complications Status: Acute (3) Normocytic anemia: Code(s): D64.9 - Anemia, unspecified Status: Acute (4) Thrombocytopenia: Code(s): D69.6 - Thrombocytopenia, unspecified Status: Acute (5) Pancreatic mass: Code(s): K86.89 - Other specified diseases of pancreas Status: Acute Plan 1. GI bleed with hematochezia and possible melena/ulcerative colitis/anemia/thrombocytopenia: CT scan today showed no CT evidence of active GI bleed, bowel wall thickening or obstruction. Per patient last colonoscopy performed in May of 2023 at [facility] showed hemorrhoids but was otherwise normal. Patient had a partial bowel resection in 2021 at [facility] for rectal bleeding but no additional information was available. At some point the patient had been diagnosed with ulcerative colitis and had been on mesalamine which was discontinued in July of this year. Unclear of when he was diagnosed and if but ulcerative colitis was confirmed by endoscopy. Patient was seen by his PCP around 3 weeks ago and was found to have a hemoglobin of 9 and was guaiac negative at that time. He has since been on iron and states that he has been having dark stools but then also stated that prior to his admission some of his stools were tar like to is unclear if there may also be an upper GI bleed especially since he has been on high-dose NSAIDs recently. He states that he has been on ibuprofen 800 mg 4 times daily over the past month for arthritic pain. On admission he labs showed HGB 6, HCT 21, MCV 83, platelets 13, INR 1.3. Patient received 1 unit PRBC's and repeat labs show Hgb 7 and Hct 23. Denies any signs of active GI bleeding since admission. DDX: Peptic ulcer disease versus AVM versus IBD versus neoplasm clear liquid diet today start bowel prep this evening NPO after midnight Colonoscopy and EGD tomorrow with Dr. Warren care with NSAID's, ASA or anticoagulant Further recommendations to follow endoscopy 2. Pancreatic lesion: CT showed questionable 2 cm mass in the tail of the pancreas. Lipase normal at 62. Denies any abdominal pain, weight loss or appetite loss. MRI ordered Thank you very much for allowing me to share in the care of this very nice patient. This report may have been done utilizing a voice recognition system. Attempts have been made to correct errors. However, there may be uncorrected grammatical, spelling, and recognition errors present. GI Consult Note Consult date/time: 01/12/25 08:17 Reason for consult: GI bleed HPI: Elliott Dumas is a 84 year old male with PMSH of BPH, diverticulosis, CVA, and prior history of ulcerative colitis. He presented to the emergency room today with complaints of rectal was to have severe anemia. GI has been consulted for GI bleed and anemia. Patient states that he typically has constipation with a bowel movement every 2 days without straining. He states that around Sunday afternoon he noticed bright red blood after a bowel movement and then on Sunday he started having more frequent bowel movements stating that he was going on average 2 times a day bowel movements were loose to formed. He denies any rectal pain. He does admit to a prior diagnosis hemorrhoids. He admits to dark tarry stools for around 2 weeks but does state that he was recently started on oral iron. He denies any abdominal pain, nausea, vomiting, bloating, odynophagia, dysphagia, reflux, regurgitation, early satiety, appetite loss, weight loss, or diarrhea. For the past 2 weeks he has been on 800 mg Motrin 4 times daily but denies any other aspirin or anticoagulant use. He is a rare social drinker and denies any tobacco or marijuana use. Family history negative for CRC or IBD. ENDOSCOPY HISTORY: EGD: Patient has never had an EGD COLONOSCOPY: Per patient he had a colonoscopy performed in May of 2023 at [facility] which was normal, endoscopy records not available LABS AND STOOL STUDIES: Labs 01/12/2025: Sodium 133, potassium 4.8, BUN 29, creatinine 1.73, GFR 38, calcium 8.5 WBC 7, Hgb 6, Hct 21, MCV 83, platelets 133, INR 1.3, lactic acid 1.1 Total bilirubin 0.3, AST 22, ALT 15, Alkaline Phos 54, albumin 3.3, lipase 62 IMAGING: CT abd/pelvis w/contrast 01/11/2025: Impression: No CT evidence for active GI bleed. Questionable 2 cm mass in the tail the pancreas. Follow-up pancreatic mass protocol CT or MR recommended. Cholelithiasis. Markedly enlarged prostate gland. Review of Systems Constitutional: Constitutional: Reports as per HPI ENT: Reports as per HPI Cardiovascular: Cardiovascular: Reports as per HPI, Denies chest pain and Denies dyspnea Respiratory: Respiratory: Denies cough and Denies dyspnea Gastrointestinal: Gastrointestinal: Reports as per HPI Musculoskeletal: Musculoskeletal: Reports as per HPI Integumentary/Breasts: Skin/Breast: Reports as per HPI Psychiatric: Psychiatric: Reports as per HPI Endocrine: Endocrine: Reports no additional endocrine complaints Hematologic/Lymphatic: Hematologic/Lymphatic: Reports no additional hematologic/lymphatic complaints [facility] Past Medical History Medical History (Updated 01/12/25 @ 09:15 by Huan Brunner MD) BPH (benign prostatic hyperplasia) Diverticulosis Ulcerative colitis CVA (cerebral vascular accident) 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 Quit tobacco 1964 after smoking 1/2ppdx 3yrs. Drinks 2-3 alcoholic drinks per week. Denies hx of drug use. Code status - full Surrogate decision maker - Smoking status: Never smoker Alcohol intake: current Drinks per week: 3 Substance use type: does not use Lack of Transportation: No Lack of Food: Never True Current Housing: I Have Housing Concerned About Future Housing: No Difficulty Paying Gas/Electric Bills: No Difficulty Paying for Meds: No Currently Unemployed: No Education: Decline to Answer Difficulty w/ Childcare or Family Care: No Spiritual care concerns: No Meds Home Medications and Allergies Home Medications ?Medication ?Instructions ?Recorded ?Confirmed ?Type clindamycin HCl 150 mg capsule 150 mg PO Q6H 10 days #40 [facility] 11/25/22 Rx Allergies Allergy/AdvReac Type Severity Reaction Status Date / Time No Known Allergies Allergy Verified 01/12/25 09:35 Vital Signs Vital Signs - 24 hr 01/11/25 23:03 01/12/25 01:30 01/12/25 02:01 Temperature 97.5 F L Pulse Rate 93 77 64 Respiratory Rate 17 17 19 Blood Pressure 131/66 120/62 95/43 L Pulse Oximetry 99 100 97 Oxygen Delivery Room Air 01/12/25 04:38 01/12/25 04:53 01/12/25 05:01 Temperature 97.7 F 98.1 F Pulse Rate 85 85 85 Respiratory Rate 16 20 15 Blood Pressure 117/54 L 120/53 L 115/54 L Pulse Oximetry 100 98 100 Oxygen Delivery 01/12/25 05:53 01/12/25 06:41 01/12/25 08:05 Temperature 98.0 F 97.8 F Pulse Rate 80 82 88 Respiratory Rate 11 L 20 16 Blood Pressure 108/55 L 107/60 118/62 Pulse Oximetry 100 97 99 Oxygen Delivery Exam Const: General: cooperative, healthy appearing, comfortable, no acute distress and well developed Orientation/consciousness: oriented to person, oriented to place, oriented to time and patient oriented x3 HENMT: Head: normal to inspection, normocephalic and atraumatic Mouth: Yes Normal oral and palatal mucosa present and Yes moist mucous membranes Eyes: General: appearance normal, both eyes and all related structures Conjunctivae: conjunctivae normal Sclera: sclerae normal Pupils: Equal, round and reactive pupils present Neck: Neck: normal visual inspection Chest: Chest palpation & inspection: normal inspection of the chest Resp: Effort & Inspection: normal respiratory effort and able to speak in complete sentences Auscultation: clear to auscultation bilaterally Cardio: Jugular venous distension: no JVD Rate: regular rate Rhythm: regular rhythm Heart sounds: S1 normal heart sound present and S2 normal heart sound present GI: Inspection: normal to inspection GI Palp: Yes Soft to palpation, No Tenderness to palpation present (GI), No Guarding due to palpation present (GI) and Yes No hepatosplenomegaly present Auscultation: normal bowel sounds Rectal Exam: deferred Skin: General skin exam: normal color and no rashes or lesions noted Neuro: General: oriented to person, oriented to place, oriented to time and patient oriented x3 Cranial nerves: Yes Equal, round and reactive pupils present Speech: normal speech Extrem: General: normal to inspection and no clubbing, cyanosis or edema Psych: Appearance: grossly normal and well kempt Affect: normal affect Results Labs 01/12/25 10:26 01/12/25 00:56 Labs: Short CBC 01/12/25 01/12/25 Range/Units 00:56 07:19 WBC 7.4 (4.5-10.0) K/mm3 Hgb 6.1 L* 6.1 L* (14.0-18.0) g/dL Hct 21.4 L 21.0 L (42.0-52.0) % Plt Count 133 L (150-375) k/mm3 BMP 01/12/25 00:56 Sodium 133 L Potassium 4.8 Chloride 104 Carbon Dioxide 23 BUN 29 H Creatinine 1.73 H Glucose 123 H Calcium 8.5 Liver Function 01/12/25 Range/Units 00:56 Total Bilirubin 0.3 (0.2-1.3) mg/dL AST 22 (17-59) U/L ALT 15 (6-50) U/L Alkaline Phosphatase 54 (38-126) U/L Albumin 3.3 L (3.5-5.1) g/dL Urine 01/12/25 Range/Units 03:27 Urine Color Yellow (Yellow) Urine Appearance Clear (Clear) Urine pH 5.5 (5.0-9.0) Ur Specific [place] 1.017 (1.001-1.035) Urine Protein Negative (Negative) mg/dL Urine Glucose (UA) Negative (Negative) mg/dL
--- NOTE | 2025-01-12 09:25 | ADMGEN ---
This patient, Elliott Dumas, was admitted to 3 [facility] Surg Room 325-02. Patient/family oriented to hospital policies and general routines including ID bracelet, bed and alarms, visiting hours, pain management, procedures, bathroom and other care routines, personal items, smoking policy, room service/diet, and visiting hours. Information on how to activate the Rapid Response Team has been discussed. Patient/Family are encouraged to report perceived risks to care and to ask questions if they do not understand what they are told or what they should do. Cat from ED gave report. Pt on unit 2/3 PRBCs with one hour vitals due at 0925
[2025-01-12 10:30] LABS: Hematocrit 22.8 % (42.0-52.0)
[2025-01-12 10:32] LABS: Hemoglobin 6.9 g/dL (14.0-18.0)
[2025-01-12] MEDS: BISACODYL 5 MG TABLET EC 10 MG PO ×2 (17:28→21:32)
[2025-01-12] MEDS: TUBING, BLOOD PLUM PUMP TUBING 1 EACH XX (17:28)
[2025-01-12] MEDS: PRIMIDONE 25 MG TABLET PO (19:01)
[2025-01-12 20:34] LABS: Hematocrit 25.0 % (42.0-52.0); Hemoglobin 7.9 g/dL (14.0-18.0)
[2025-01-12] MEDS: MAGNESIUM CITRATE 300 ML BTL 180 ML PO (21:32)
[2025-01-13] VITALS (9 sets, daily range): BP systolic 107–144; BP diastolic 50–76; PULSE 59–78; RESP 11–23; TEMP 35.9–36.8; O2SAT 99–100
[2025-01-13 02:19] LABS: Hematocrit 28.1 % (42.0-52.0); Hemoglobin 8.8 g/dL (14.0-18.0); Immature Granulocyte Percent A 0.6 % (0-0.5); Lymphocytes Absolute Auto 1.29 K/mm3 (0.9-3.2); Mean Corpuscular HGB Conc 31.3 g/dl (32-36); Mean Corpuscular Hemoglobin 27.1 pg (26-34); Mean Corpuscular Volume 86.5 fl (80-100); Nucleated Red Blood Cells Absolute Auto 0.000 K/mm3 (0.0-0.012); Nucleated Red Blood Cells Perc 0.0 % (0.0-0.2); Platelet Count Result 118 k/mm3 (150-375); Red Blood Count 3.25 M/mm3 (4.6-6.20); White Blood Count 7.9 K/mm3 (4.5-10.0)
[2025-01-13 02:39] LABS: Anisocytosis 1+; Hypochromasia 1+
[2025-01-13 02:40] LABS: Schistocytes None Seen
[2025-01-13 02:41] LABS: Ovalocytes 1+
[2025-01-13 02:52] LABS: Alanine Aminotransferase 16 U/L (6-50); Albumin Level 3.1 g/dL (3.5-5.1); Alkaline Phosphatase 47 U/L (38-126); Anion Gap 7 mmol/L (4-12); Aspartate Amino Transferase 23 U/L (17-59); Bilirubin,Total 0.6 mg/dL (0.2-1.3); Blood Urea Nitrogen 20 mg/dL (9-20); Calcium 8.0 mg/dL (8.4-10.2); Carbon Dioxide 20 mmol/L (22-30); Chloride 109 mmol/L (98-107); Estimated CRCL calculation 42 ml/min; Estimated Glomerular Filt Rate > 60; Glucose 122 mg/dL (65-110); Potassium 3.9 mmol/L (3.4-5.0); Sodium 136 mmol/L (137-145); Total Protein 5.3 g/dL (6.3-8.2)
--- NOTE | 2025-01-13 08:05 | WPDANESEPPF ---
Anes - Initial Pre Proc Eval Procedure: Operation Date: 01/13/25 14:30 Proposed Procedures p EGD & Diagnostic Colonoscopy - Jone Shannon MD Date/Time: 01/13/25 08:05 Surgeon: Noman Brunner MD Pre Op Diagnosis: GI BLEED,ANEMIA REQUIRING BLOOD TRANSFUSION Patient Data Age: 84 Gender: M Height: 1.65 m Weight: 68.5 kg Last Vital Signs Temp 36.3 C L 01/13/25 07:52 Pulse 66 01/13/25 07:52 Resp 18 01/13/25 07:52 BP 136/70 01/13/25 07:52 Pulse Ox 100 01/13/25 07:52 O2 Del Method Room Air 01/13/25 07:52 Allergies Allergy/AdvReac Type Severity Reaction Status Date / Time No Known Allergies Allergy Verified 01/13/25 07:51 Home Medications ?Medication ?Instructions ?Recorded ?Confirmed ?Type cholecalciferol (vitamin D3) 50 2,000 unit PO DAILY 01/12/25 01/12/25 History mcg (2,000 unit) capsule ferrous sulfate 325 mg (65 mg 325 mg PO BID 01/12/25 01/12/25 History iron) tablet finasteride 5 mg tablet 5 mg PO DAILY 01/12/25 01/12/25 History ibuprofen 800 mg tablet 800 mg PO Q6-8H PRN pain 01/12/25 01/12/25 History mecobalamin (vitamin B12) 1,000 1,000 mcg PO DAILY 01/12/25 01/12/25 History mcg chewable tablet meloxicam 15 mg tablet 15 mg PO DAILY 01/12/25 01/12/25 History omeprazole 40 mg capsule,delayed 40 mg PO DAILY 01/12/25 01/12/25 History release primidone 50 mg tablet 25 mg PO BID 01/12/25 01/12/25 History psyllium husk 0.52 gram capsule 0.52 g PO HS 01/12/25 01/12/25 History (Daily Fiber) tizanidine 2 mg tablet 2 mg PO TID PRN muscle spasticity 01/12/25 01/12/25 History Laboratory Tests 01/12/25 01/12/25 01/12/25 00:56 10:26 20:29 WBC 7.4 K/mm3 (4.5-10.0) RBC 2.59 L M/mm3 (4.6-6.20) Hgb 6.1 L* g/dL 6.9 L* g/dL 7.9 L g/dL (14.0-18.0) (14.0-18.0) (14.0-18.0) Hct 21.4 L % 22.8 L % 25.0 L % (42.0-52.0) (42.0-52.0) (42.0-52.0) MCV 82.6 fl (80-100) MCH 23.6 L pg (26-34) MCHC 28.5 L g/dl (32-36) RDW 27.0 H % (11.5-14.5) Plt Count 133 L k/mm3 (150-375) MPV 9.9 fl (7.4-10.4) Immature Gran % (Auto) 0.5 % (0-0.5) Neut % (Auto) 79.3 H % (45.5-73.1) Lymph % (Auto) 12.5 L % (18.3-44.2) [place] % (Auto) 6.5 % (2.6-8.5) Eos % (Auto) 0.8 % (0-4.4) Baso % (Auto) 0.4 % (0.2-1.2) Lymph # (Auto) 0.92 K/mm3 (0.9-3.2) [place] # (Auto) 0.5 K/mm3 (0.1-0.6) Eos # (Auto) 0.1 K/mm3 (0-0.3) Baso # (Auto) 0.0 K/mm3 (0.0-0.1) Abs Immat Gran (auto) 0.04 H K/mm3 (0.00-0.031) Absolute Neuts (auto) 5.8 K/mm3 (1.3-6.7) Absolute Nucleated RBC 0.000 K/mm3 (0.0-0.012) Band Neutrophils % Nucleated RBC % 0.0 % (0.0-0.2) Platelet Estimate Slightly decreased (Adequate) Hypochromasia 2+ Anisocytosis 2+ Ovalocytes Schistocytes Rare PT 16.4 H Seconds (11.1-14.7) INR 1.3 APTT 29.4 Seconds (22.3-36.8) Sodium 133 L mmol/L (137-145) Potassium 4.8 mmol/L (3.4-5.0) Chloride 104 mmol/L (98-107) Carbon Dioxide 23 mmol/L (22-30) Anion Gap 6 mmol/L (4-12) BUN 29 H mg/dL (9-20) Creatinine 1.73 H mg/dL (0.7-1.3) Estim Creat Clear Calc 26 ml/min Estimated GFR 38 L (59 - ) Glucose 123 H mg/dL (65-110) Calcium 8.5 mg/dL (8.4-10.2) Total Bilirubin 0.3 mg/dL (0.2-1.3) AST 22 U/L (17-59) ALT 15 U/L (6-50) Alkaline Phosphatase 54 U/L (38-126) Total Protein 5.5 L g/dL (6.3-8.2) Albumin 3.3 L g/dL (3.5-5.1) Lipase 62 U/L (23-300) Blood Type B Positive Antibody Screen Negative Crossmatch See Detail 01/13/25 02:11 WBC 7.9 K/mm3 (4.5-10.0) RBC 3.25 L M/mm3 (4.6-6.20) Hgb 8.8 L g/dL (14.0-18.0) Hct 28.1 L % (42.0-52.0) MCV 86.5 fl (80-100) MCH 27.1 D pg (26-34) MCHC 31.3 L g/dl (32-36) RDW 23.6 H % (11.5-14.5) Plt Count 118 L k/mm3 (150-375) MPV 9.3 fl (7.4-10.4) Immature Gran % (Auto) 0.6 H % (0-0.5) Neut % (Auto) 75.1 H % (45.5-73.1) Lymph % (Auto) 16.3 L % (18.3-44.2) [place] % (Auto) 6.7 % (2.6-8.5) Eos % (Auto) 1.0 % (0-4.4) Baso % (Auto) 0.3 % (0.2-1.2) Lymph # (Auto) 1.29 K/mm3 (0.9-3.2) [place] # (Auto) 0.5 K/mm3 (0.1-0.6) Eos # (Auto) 0.1 K/mm3 (0-0.3) Baso # (Auto) 0.0 K/mm3 (0.0-0.1) Abs Immat Gran (auto) 0.05 H K/mm3 (0.00-0.031) Absolute Neuts (auto) 6.0 K/mm3 (1.3-6.7) Absolute Nucleated RBC 0.000 K/mm3 (0.0-0.012) Band Neutrophils % Not Reportable Nucleated RBC % 0.0 % (0.0-0.2) Platelet Estimate Decreased (Adequate) Hypochromasia 1+ Anisocytosis 1+ Ovalocytes 1+ Schistocytes None seen PT INR APTT Sodium 136 L mmol/L (137-145) Potassium 3.9 mmol/L (3.4-5.0) Chloride 109 H mmol/L (98-107) Carbon Dioxide 20 L mmol/L (22-30) Anion Gap 7 mmol/L (4-12) BUN 20 mg/dL (9-20) Creatinine 1.03 mg/dL (0.7-1.3) Estim Creat Clear Calc 42 ml/min Estimated GFR > 60 (59 - ) Glucose 122 H mg/dL (65-110) Calcium 8.0 L mg/dL (8.4-10.2) Total Bilirubin 0.6 mg/dL (0.2-1.3) AST 23 U/L (17-59) ALT 16 U/L (6-50) Alkaline Phosphatase 47 U/L (38-126) Total Protein 5.3 L g/dL (6.3-8.2) Albumin 3.1 L g/dL (3.5-5.1) Lipase Blood Type Antibody Screen Crossmatch Patient hx anesthesia problems: none Family hx anesthesia problems: none Results Review: All pre-operative results and documents have been reviewed as part of the pre-operative evaluation. 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 Quit tobacco 1965 after smoking 1/2ppdx 3yrs. Drinks 2-3 alcoholic drinks per week. Denies hx of drug use. Code status - full Surrogate decision maker - Smoking status: Never smoker Alcohol intake: current Drinks per week: 3 Substance use type: does not use Lack of Transportation: No Lack of Food: Never True Current Housing: I Have Housing Concerned About Future Housing: No Difficulty Paying Gas/Electric Bills: No Difficulty Paying for Meds: No Currently Unemployed: No Education: Decline to Answer Difficulty w/ Childcare or Family Care: No Spiritual care concerns: No Anes - Eval Final PreProcedure Day of Procedure 01/13/25 08:05 Patient weight: normal Heart: regular rate and rhythm Lungs: clear to auscultation Airway: Mallampati scale class III Neurological: alert and oriented Last oral intake: >/= 8 hours ASA classification: III Emergent: no Anesthetic plan: proceed Anesthesia type and monitoring: general GIVS and standard monitoring Results Review: All pre-operative results and documents have been reviewed as part of the pre-operative evaluation. Informed Consent: The patient's anesthetic plan and its attendant risks and benefits were discussed with the patient/family/POA. Questions were solicited and answers provided to the satisfaction of the patient/family/POA.
--- NOTE | 2025-01-13 09:04 | SUR.OPER ---
EGD: start 854, end 858 Colonoscopy: start 903, end 912
[2025-01-13] MEDS: LACTATED RINGERS 1,000 ML 150 ML IV CONT (09:15)
--- NOTE | 2025-01-13 09:16 | S_PTH ---
PATIENT: Elliott Dumas LOC: [id number] U#:[id number] AGE/SX: 84/M ROOM: 325 RE01/12/[address]: Noman Brunner MD : 1940 BED: 02 DIS: 01/13/2025 SPEC #: [id number] RECD: 01/13/25 09:56 STATUS: JESSICA [place] #: [id number] JR: 01/13/25 09:[address]: Jone Shannon DEPT: [facility] Surgical RECD BY: Nilson Cox ENTERED: 01/13/25 09:57 SP TYPE: Surgical OTHR DR: Noman Brunner MD Tissues: A - Gastric Biopsy B - Colon Biopsy C - Small Bowel Bx Procedures: Hematoxylin and Eosin Stain Gross and Microscopic Level 4 H.Pylori
[2025-01-13 11:08] LABS: Hematocrit 30.6 % (42.0-52.0); Hemoglobin 8.9 g/dL (14.0-18.0)
--- NOTE | 2025-01-13 11:28 | P.PNIM_ITS ---
Progress Note: A&P Assessment and Plan (1) GI bleed: Code(s): K92.2 - Gastrointestinal hemorrhage, unspecified Status: Acute Assessment and Plan: Patient with black stools since starting iron and developed BRBPR now. Has been on high dose of ibuprofen as well. Hgb dropped to 6.1 and he received 3U PRBCs. Hgb up to 8 range now EGD showing gastritis. Colonoscopy showing left colon diverticuli, few superficial aphthous ulcers at brendon-terminal ileum and internal hemorrhoids. No evidence of active bleeding or colitis. The BRBPR probably related to hemorrhoids. Stop Ibuprofen. Continue Protonix. (2) Normocytic anemia: Code(s): D64.9 - Anemia, unspecified Status: Acute Assessment and Plan: Normocytic with some evidence of iron deficiency probably from occult blood loss. Iron studies not helpful since he was already transfused. Serial HH showing stable Hgb in the 8 range Transfuse to keep Hgb>7 (3) Pancreatic mass: Code(s): K86.89 - Other specified diseases of pancreas Status: Acute Assessment and Plan: CT showing a questionable 2 cm mass in the tail the pancreas. Lipase normal. MRI ordered. (4) EKON (acute kidney injury): Code(s): N17.9 - Acute kidney failure, unspecified Status: Acute Assessment and Plan: BUN 29, Cr 1.73 on admission. No baseline to compare BUN elevation can be related to GI bleed. Cr 1.03 now Follow. (5) Thrombocytopenia: Code(s): D69.6 - Thrombocytopenia, unspecified Status: Acute Assessment and Plan: Platelet count low at 133K. Unclear if acute of chronic. Repeat count lower at 118K. Follow. (6) Cholelithiasis: Code(s): K80.20 - Calculus of gallbladder without cholecystitis without obstruction Status: Acute Assessment and Plan: Cholelithiasis noted by CT. No symptoms. Follow clinically. (7) BPH (benign prostatic hyperplasia): Code(s): N40.0 - Benign prostatic hyperplasia without lower urinary tract symptoms Status: Acute Assessment and Plan: Patient with markedly enlarged prostate gland. He does take finasteride but not tamsulosin. Monitor for evidence of urine retention. Continue finasteride (8) Ulcerative colitis: Code(s): K51.90 - Ulcerative colitis, unspecified, without complications Status: Acute Assessment and Plan: As above. He has been off his mesalamine since July. He denies GI symptoms since coming off his medications up until these current complaints. GI consulted and colonoscopy showing small colonic ulcers. Mesalamine to be restarted. Plan DVT prophylaxis - SCDs Code status - full Subjective Date/time seen: 01/13/25 11:28 Interval history: 84yo male with hx of CVA, BPH, diverticulosis and ulcerative colitis here for rectal bleeding. Feeling well. No BM since back from his colonoscopy. No abd pain. Had dark stools with bowel prep but no da blood. Exam Narrative: AF 97.5 126/76 60 23 100% ra Gen - NARD Chest - CTA bilaterally, nml RR CV - RRR. S1-S2. Abd - abdomen was soft. Nontender. Nondistended. Ext - no pedal edema. Neuro - patient is alert and apprpriate Psych - normal mood and affect. Skin - warm and dry. Objective Data Vital Signs Vital Signs: Vital Signs - 24 hr 01/12/25 11:40 01/12/25 11:55 01/12/25 12:55 Temperature 97.8 F 98.2 F 98.1 F Pulse Rate 78 78 81 Respiratory Rate 16 16 16 Blood Pressure 144/69 H 130/58 L 122/62 Pulse Oximetry 100 99 97 Oxygen Delivery 01/12/25 13:55 01/12/25 13:59 01/12/25 14:51 Temperature 98.5 F 98.5 F 98.5 F Pulse Rate 52 L 82 70 Respiratory Rate 16 16 16 Blood Pressure 132/65 132/65 118/55 L Pulse Oximetry 100 100 99 Oxygen Delivery 01/12/25 14:59 01/12/25 20:05 01/13/25 00:20 Temperature 97 F L 97.5 F L Pulse Rate 69 73 Respiratory Rate 20 20 Blood Pressure 135/54 L 132/59 L Pulse Oximetry 97 99 100 Oxygen Delivery Room Air 01/13/25 04:45 01/13/25 07:52 01/13/25 08:00 Temperature 96.6 F L 97.4 F L 97.5 F L Pulse Rate 69 66 63 Respiratory Rate 18 18 17 Blood Pressure 126/60 136/70 135/67 Pulse Oximetry 99 100 100 Oxygen Delivery Room Air 01/13/25 09:18 01/13/25 09:28 08/05/25 09:38 Temperature Pulse Rate 63 59 L 60 Respiratory Rate 11 L 15 23 H Blood Pressure 107/65 124/64 126/76 Pulse Oximetry 100 100 100 Oxygen Delivery Room Air Room Air Room Air Intake/Output Intake/Output: Intake & Output 01/10/25 01/11/25 01/12/25 01/13/25 23:59 23:59 23:59 23:59 Intake Total 2776 1923 Output Total 900 Balance 1876 1923 Meds/Results Medications: Active Medications Generic Name Dose Route Start Last Admin Trade Name Freq PRN Reason Stop Dose Admin Acetaminophen 650 mg 01/12/25 07:36 Acetaminophen 325 Mg Tablet PO Q4H PRN Mild Pain (1-3) or Fever Cyanocobalamin 1,000 mcg 01/13/25 09:00 Cyanocobalamin 1,000 Mcg Tablet PO DAILY [facility] Ferrous Sulfate 325 mg 01/13/25 09:00 Ferrous Sulfate [address] PO BID [facility] Finasteride 5 mg 01/13/25 09:00 Finasteride 5 Mg Tablet PO DAILY [facility] Mesalamine 800 mg 01/13/25 13:00 Mesalamine 400 Mg Delayed Release Capsule PO TID [facility] Ondansetron HCl 4 mg 01/12/25 07:36 Ondansetron Inj 4 Mg/2 Ml Vial IV PUSH Q4H PRN Nausea Pantoprazole Sodium 40 mg 01/14/25 09:00 Pantoprazole 40 Mg Tablet PO QAM [facility] Primidone 25 mg 01/12/25 18:15 01/12/25 19:01 Primidone 25 Mg Tablet PO 25 mg BID [facility] Administration Vitamin D 50 mcg 01/13/25 09:00 Cholecalciferol (Vitamin D3) 25 Mcg (1,000 Units) Tablet PO DAILY [facility] Radiology Results: ITS Impressions Abdomen/Pelvis CT 01/12/25 06:02 Impression: No CT evidence for active GI bleed. Questionable 2 cm mass in the tail the pancreas. Follow-up pancreatic mass protocol CT or MR recommended. Cholelithiasis. Markedly enlarged prostate gland. Labs Labs: Laboratory Results - last 24 hr 01/12/25 01/12/25 01/13/25 00:56 20:29 02:11 WBC 7.9 RBC 3.25 L Hgb 7.9 L 8.8 L Hct 25.0 L 28.1 L MCV 86.5 MCH 27.1 D MCHC 31.3 L RDW 23.6 H Plt Count 118 L MPV 9.3 Immature Gran % (Auto) 0.6 H Neut % (Auto) 75.1 H Lymph % (Auto) 16.3 L Garvin % (Auto) 6.7 Eos % (Auto) 1.0 Baso % (Auto) 0.3 Lymph # (Auto) 1.29 Garvin # (Auto) 0.5 Eos # (Auto) 0.1 Baso # (Auto) 0.0 Abs Immat Gran (auto) 0.05 H Absolute Neuts (auto) 6.0 Absolute Nucleated RBC 0.000 Band Neutrophils % Not Reportable Nucleated RBC % 0.0 Platelet Estimate Decreased Hypochromasia 1+ Anisocytosis 1+ Ovalocytes 1+ Schistocytes None seen Sodium 136 L Potassium 3.9 Chloride 109 H Carbon Dioxide 20 L Anion Gap 7 BUN 20 Creatinine 1.03 Estim Creat Clear Calc 42 Estimated GFR > 60 Glucose 122 H Calcium 8.0 L Total Bilirubin 0.6 AST 23 ALT 16 Alkaline Phosphatase 47 Total Protein 5.3 L Albumin 3.1 L Blood Type B Positive Antibody Screen Negative Crossmatch See Detail 01/13/25 10:58 WBC RBC Hgb 8.9 L Hct 30.6 L MCV MCH MCHC RDW Plt Count MPV Immature Gran % (Auto) Neut % (Auto) Lymph % (Auto) Garvin % (Auto) Eos % (Auto) Baso % (Auto) Lymph # (Auto) Garvin # (Auto) Eos # (Auto) Baso # (Auto) Abs Immat Gran (auto) Absolute Neuts (auto) Absolute Nucleated RBC Band Neutrophils % Nucleated RBC % Platelet Estimate Hypochromasia Anisocytosis Ovalocytes Schistocytes Sodium Potassium Chloride Carbon Dioxide Anion Gap BUN Creatinine Estim Creat Clear Calc Estimated GFR Glucose Calcium Total Bilirubin AST ALT Alkaline Phosphatase Total Protein Albumin Blood Type Antibody Screen Crossmatch
[2025-01-13] MEDS: PRIMIDONE 25 MG TABLET PO ×2 (12:57→16:41)
[2025-01-13] MEDS: CHOLECALCIFEROL (VITAMIN D3) 25 MCG (1,000 UNITS) TABLET 50 MCG PO (12:58)
[2025-01-13] MEDS: MESALAMINE 400 MG DELAYED RELEASE CAPSULE 800 MG PO ×2 (12:58→16:40)
[2025-01-13] MEDS: FINASTERIDE 5 MG TABLET PO (12:58)
[2025-01-13] MEDS: CYANOCOBALAMIN 1,000 MCG TABLET 1000 MCG PO (12:58)
[2025-01-13] MEDS: FERROUS SULFATE 325 MG TABLET DR PO ×2 (12:58→16:40)
[2025-01-13] MEDS: PANTOPRAZOLE SODIUM IV 40 MG VIAL IV PUSH (12:59)
--- NOTE | 2025-01-13 18:23 | PM.DS ---
DS: Admitting Diagnosis Discharge Date 01/13/25 Admitting Diagnosis Rectal bleeding DS: Discharge Diagnosis Discharge Diagnosis (1) GI bleed: Code(s): K92.2 - Gastrointestinal hemorrhage, unspecified Status: Acute (2) Normocytic anemia: Code(s): D64.9 - Anemia, unspecified Status: Acute (3) Pancreatic mass: Code(s): K86.89 - Other specified diseases of pancreas Status: Acute (4) KEON (acute kidney injury): Code(s): N17.9 - Acute kidney failure, unspecified Status: Acute (5) Thrombocytopenia: Code(s): D69.6 - Thrombocytopenia, unspecified Status: Acute (6) Cholelithiasis: Code(s): K80.20 - Calculus of gallbladder without cholecystitis without obstruction Status: Acute (7) BPH (benign prostatic hyperplasia): Code(s): N40.0 - Benign prostatic hyperplasia without lower urinary tract symptoms Status: Acute (8) Ulcerative colitis: Code(s): K51.90 - Ulcerative colitis, unspecified, without complications Status: Acute DS: Summary Hospital Course Reason for hospitalization: 84yo male with hx of CVA, BPH, diverticulosis and ulcerative colitis here for rectal bleeding. Please see H&P for details Hospital Course: Patient with black stools since starting iron and developed BRBPR now. Has been on high dose of ibuprofen as well. Hgb dropped to 6.1 and he received 3U PRBCs. Hgb up to 8 range now and stable. GI consulted. EGD showing gastritis. Colonoscopy showing left colon diverticuli, few superficial aphthous ulcers at brendon-terminal ileum and internal hemorrhoids. No evidence of active bleeding or colitis. The BRBPR probably related to hemorrhoids. We stopped his Ibuprofen. We continued Protonix. Mesalamine resumed. Normocytic with some evidence of iron deficiency probably from occult blood loss. Iron studies not helpful since he was already transfused. Serial HH showing stable Hgb in the [address] showing a questionable 2 cm mass in the tail the pancreas. MRCP showing cholelithiasis but otherwise no acute findings. No evidence of a pancreatic mass. Lipase normal. Patient also with KEON with BUN 29, Cr 1.73 on admission. No baseline to compare. BUN elevation can be related to GI bleed. Cr 1.03 now. Platelet count low at 133K. Unclear if acute of chronic. Repeat count lower at 118K. Patient with markedly enlarged prostate gland. He does take finasteride but not tamsulosin. He was monitored for evidence of urine retention and we continued his finasteride. Patient has been off his mesalamine since July. He denies GI symptoms since coming off his medications up until these current complaints. GI consulted and colonoscopy showing small colonic ulcers. Mesalamine to be restarted. Discharge instructions discussed with him and his . All questions answered. He overall did well and was able to be discharged on 01/13/25. Status at Discharge Cognitive/behavioral status at discharge: stable Time Spent with Patient Time attestation: Total time spent providing and/or coordinating discharge services: 35 minutes Time spent: Greater than 30 minutes Exam Narrative: AF 97.5 126/76 60 23 100% ra Gen - NARD Chest - CTA bilaterally, nml RR CV - RRR. S1-S2. Abd - abdomen was soft. Nontender. Nondistended. Ext - no pedal edema. Neuro - patient is alert and apprpriate Psych - normal mood and affect. Skin - warm and dry. DS: Data Data Completed and Pending Pending studies at discharge: Pending at discharge 01/13/25 09:16 Surgical [PTH] Routine Labs on day of discharge: Labs from last 24 hours 01/13/25 01/13/25 01/12/25 10:58 02:11 20:29 WBC 7.9 RBC 3.25 L Hgb 8.9 L 8.8 L 7.9 L Hct 30.6 L 28.1 L 25.0 L MCV 86.5 MCH 27.1 D MCHC 31.3 L RDW 23.6 H Plt Count 118 L MPV 9.3 Immature Gran % (Auto) 0.6 H Neut % (Auto) 75.1 H Lymph % (Auto) 16.3 L Moody % (Auto) 6.7 Eos % (Auto) 1.0 Baso % (Auto) 0.3 Lymph # (Auto) 1.29 Moody # (Auto) 0.5 Eos # (Auto) 0.1 Baso # (Auto) 0.0 Abs Immat Gran (auto) 0.05 H Absolute Neuts (auto) 6.0 Absolute Nucleated RBC 0.000 Band Neutrophils % Not Reportable Nucleated RBC % 0.0 Platelet Estimate Decreased Hypochromasia 1+ Anisocytosis 1+ Ovalocytes 1+ Schistocytes None seen Sodium 136 L Potassium 3.9 Chloride 109 H Carbon Dioxide 20 L Anion Gap 7 BUN 20 Creatinine 1.03 Estim Creat Clear Calc 42 Estimated GFR > 60 Glucose 122 H Calcium 8.0 L Total Bilirubin 0.6 AST 23 ALT 16 Alkaline Phosphatase 47 Total Protein 5.3 L Albumin 3.1 L Discharge Plan Discharge Attending physician on discharge: Huan Brunner Consulting providers: Jone Shannon Discharging Clinician: Huan Brunner Anticipated Discharge Date/Time: 01/13/25 18:29 Patient Disposition: Home Activity: as tolerated Diet: regular Discharge Instructions: As we talked about, use Miralax daily. You may adjust this medication to ensure you are having one soft bowel movement per day or every other day. Take precautions to avoid falls. Rise slowly from a lying or sitting position. Pause before standing or walking. Contact your doctor or call 911 and come to the Emergency Room if you have recurrent rectal bleeding or other worrisome symptoms. Avoid NSAIDs (ibuprofen, naproxen, Aleve). Tylenol is safe to take. Follow-up with your primary care provider in 1-2 weeks. Please call for appointment. The GI office will call you with results of your colon biopsies. Please call the office if you have not heard from them in 1 week. Follow-up with GI office in 4-6 weeks. Please call for an appointment. Thank you for using [facility] for your health care needs. Patient Instructions: Antibiotic Form Patient Language: Qatari Stand Alone Forms: General Discharge Information Follow-up/Referrals: Sonu Mccloud [Other] - Call for Appointment Jone Shannon MD [Physician] - Call for Appointment Discharge Medications: New polyethylene glycol 3350 [Miralax] 17 gram Powder In Packet 17 g PO QAM Qty: 30 0RF mesalamine 800 mg tablet,delayed release (DR/EC) 800 mg PO TID Qty: 90 0RF Rx Instructions: must be taken on empty stomach; no food 1 hr after or 2-3 hrs before dose Continued ferrous sulfate 325 mg (65 mg iron) tablet 325 mg PO BID finasteride 5 mg tablet 5 mg PO DAILY meloxicam 15 mg tablet 15 mg PO DAILY omeprazole 40 mg capsule,delayed release(DR/EC) 40 mg PO DAILY primidone 50 mg tablet 25 mg PO BID tizanidine 2 mg tablet 2 mg PO TID PRN (Reason: muscle spasticity) cholecalciferol (vitamin D3) 50 mcg (2,000 unit) capsule 2,000 unit PO DAILY mecobalamin (vitamin B12) 1,000 mcg tablet,chewable 1,000 mcg PO DAILY psyllium husk [Daily Fiber] 0.52 gram capsule 0.52 g PO HS Discontinued ibuprofen 800 mg tablet 800 mg PO Q6-8H PRN (Reason: pain) Date of admission: 01/12/25 07:36 Primary Care Provider: Sonu Mccloud Admitting Provider: Huan Brunner Attending physician on admission: Huan Brunner Condition: Stable Hospitalist MIPS Heart Failure (Exclusion) Patient has history of Heart Transplant or Left Ventricular Assistive Device?: No IF YES, STOP HERE Heart Failure (Qualifier) Patient has current or prior documentation of LVEF less than or equal to 40%, or mod/servere depressed LVSF?: No IF NO, STOP HERE
== END 2025-01-13 19:00 | disposition home or self-care (01) ==
LOC: ANHED 01-12 08:45 → ANH3MEDSUR 01-12 08:47
PROVIDERS: Internal Medicine Gastroenterology; Admitting Provider Internal Medicine; Emergency Provider Student in an Organized Health Care Education/Training Program; Visit Provider Internal Medicine
PROC: 0DJ08ZZ Inspection of Upper Intestinal Tract, Via Natural or Artificial Opening Endoscopic (ICD-10-PCS; CPT 45378; principal; 2025-01-13 14:30)
DX: K51.90 Ulcerative colitis, unspecified, without complications (principal); K29.50 Unspecified chronic gastritis without bleeding; K63.89 Other specified diseases of intestine; K57.30 Diverticulosis of large intestine without perforation or abscess without bleeding; K64.8 Other hemorrhoids; K86.89 Other specified diseases of pancreas; N17.9 Acute kidney failure, unspecified; D69.6 Thrombocytopenia, unspecified; K80.20 Calculus of gallbladder without cholecystitis without obstruction; D64.9 Anemia, unspecified; Z86.73 Personal history of transient ischemic attack (TIA), and cerebral infarction without residual deficits; N40.0 Benign prostatic hyperplasia without lower urinary tract symptoms
CPT/HCPCS: 43239; 45380; 36415; 36430; 74177; 74183; 76376; 80053; 81001; 83605; 83690; 85014; 85018; 85025; 85610; 85730; 86850; 86900; 86901; 86923; 87086; 88305; 88342; 96361; 96374; 96375; 99285; A9270; A9577; G0378; J2003; J2470; J2704; J7030; J7050; J7120; P9016; Q9967

== ENCOUNTER 2025-04-23 14:07 | Outpatient (CLI) | payer OTHER, SELFPAY ==
--- NOTE | ~2025-04-23 | US_ITS ---
EXAMINATION: US venous doppler LE , 04/23/2025 14:36 TRUSS DESIGNER HISTORY: Leg swelling Comparison: None Technique: [place]-scale and color Doppler images were attempted of the lower saphenofemoral junction, common femoral vein,superficial femoral vein, proximal deep femoral vein, proximal deep femoral vein, popliteal vein and posterior tibial veins. Findings: Deep Venous System:Normal flow, augmentation and compressibility. No echogenic thrombus identified. The contralateral saphenofemoral junction appears unremarkable. Superficial Venous SystemNo superficial thrombophlebitis. Soft tissues: Soft tissues are unremarkable. Impression: Negative for DVT. Reviewed, dictated and finalized at location P. S DESIGNER Impression: Negative for DVT.
--- OUTSIDE RECORDS SUMMARY | 2025-04-23 14:36 | XMS_ITS | Clinical Summary ---
Author Organization [facility] Address [address] [place] [address] Phone Care Team Providers Care Lieutenant Ballistics Name Role Phone Unavailable Primary Care Provider Unavailabl e Encounters Date Type Department Care Team Description 04/13/2025 Transcribe Orders Central Test Scheduling [address] [place] [address] Sonu Mccloud, 04/01/2025 External Device Data [facility] ABSTRACTION Provider, Abstract 03/31/2025 External Device Data [facility] ABSTRACTION Provider, Abstract 03/17/2025 External Device Data [facility] ABSTRACTION Provider, Abstract 03/17/2025 External Device Data [facility] ABSTRACTION Provider, Abstract 03/17/2025 External Device Data [facility] ABSTRACTION Provider, Abstract 03/10/2025 3:50 PM CDT - 03/10/2025 11:59 PM CDT Hospital Encounter [facility] [address] [place] [address] Sonu Mccloud, Discharge Disposition: Home or Self Care from Last 3 Months Social History Tobacco Use Types Packs/Day Years Used Date Smoking Tobacco: Never Assessed Sex and Gender Information Value Date Recorded Sex Assigned at Not on file 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 Gender Identity Not on file Sexual Orientation Not on file Plan of Treatment Health Maintenance Due Date Last Done Comments DTAP/TDAP/TD VACCINES (1 - Tdap) 1960 PNEUMOCOCCAL VACCINE 50+ YEARS (1 of 1 - PCV) 03/28/19 91 ZOSTER VACCINE (1 of 2) 1991 RSV VACCINE (60+ or ) (1 - 1-dose 75+ series) 2016 INFLUENZA VACCINE (#1) 2025 03/25/2024 Procedures Procedure Name Priority Date/Time Associated Diagnosis Comments XR HIP 2 OR 3 VIEWS LT Routine 03/10/2025 4:05 PM CDT Left thigh pain from Last 3 Months Results * XR HIP 2 OR 3 VIEWS LT (03/10/2025 4:05 PM CDT) Anatomical Region Laterality Modality Lower Extremity Left Computed Radiogr aphy 03/10/2025 4:06 PM CDT Impressions 03/11/2025 6:32 PM CDT IMPRESSION: 1. Mild left hip osteoarthritis. DICTATION LOCATION: Location [address] [place] [address] Scot Narrative 03/11/2025 6:32 PM CDT EXAMINATION: X-RAY HIP 2 OR 3 VIEWS LEFT DATE: 03/10/2025 4:05 PM HISTORY: Hip pain. COMPARISON: 01/13/2021 FINDINGS: 3 views of the left hip are submitted. The left hip is normally aligned. There is mild left hip osteoarthritis. No acute fracture is seen. Procedure Note Kiko Gray MD - 03/11/2025 EXAMINATION: X-RAY HIP 2 OR 3 VIEWS LEFT DATE: 03/10/2025 4:05 PM HISTORY: Hip pain. COMPARISON: 01/13/2021 FINDINGS: 3 views of the left hip are submitted. The left hip is normally aligned. There is mild left hip osteoarthritis. No acute fracture is seen. IMPRESSION: 1. Mild left hip osteoarthritis. DICTATION LOCATION: Location [address] [place] [address] Sonu Mccloud DO DIAGNOSTIC IMAGING D[facility] Final Result from Last 3 Months Insurance [facility]
--- OUTSIDE RECORDS SUMMARY | 2025-04-23 14:36 | XMS_ITS | Clinical Summary ---
Author Organization [facility] Address [address] [place] [address] Care Team Providers Care Operations Superintendent Name Role Phone Ame Stephen KimbleAngel Primary Care Provider [phone] Hina Diaz MD Unavailable Hina Diaz MD Unavailable [phone] Source Comments [facility],non-owned Affiliates and Associated Physician Practices is amultiple site organization consisting of ambulatory clinics and hospital sitesin [place], [place], [place] and [place]. This disclosure is being madepursuant to the Care Everywhere program and may not contain all information available regarding this patient. 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 Gender Identity Not on file Sexual Orientation [...] 77.1 kg (170 lb) 05/08/2018 8:04 AM CHANGE RELEASE MANAGER Height 165.1 cm (5' 5) 05/08/2018 8:04 AM CHANGE RELEASE MANAGER Body Mass Index 28.29 05/08/2018 8:04 AM CHANGE RELEASE MANAGER Plan of Treatment Health Maintenance Due Date Last Done Comments MEDICARE AWV 12 MONTHS 1941 DTAP/TDAP/TD VACCINES (1 - Tdap) 1960 PNEUMOCOCCAL VACCINE 50+ (1 of 1 - PCV) 1991 ZOSTER VACCINE (1 of 2) 1991 Respiratory Syncytial Virus (RSV) Vaccine Pt: or over 60 yrs (1 - 1-dose 75+ series) 2016 DEPRESSION SCREENING 06/11/2024 COVID-19 VACCINE (2024- season) 2025 04/18/2021, 08/24/2020, 08/03/2020 INFLUENZA VACCINE (#1) 2025 0, 03/26/2017, 05/02/2016, Additional history exists HEPATITIS B [...] patient's age to complete this topic Insurance [facility] MEDICARE SELF PAY NO INSURANCE Member Subscriber Plan / Payer (Ef fective for All Dates) Name:Anayeli Dumas Member ID:Not on file Relation to Subscriber:Not on file Name:ANAYELI DUMAS Subscriber ID:Not on file (Home) Address: [address] [place] [id number] Payer ID:Not on file Group ID:Not on file Type:Self Pay Address: [place], [place] Advance Directives * FULL RESUSCITATION (Latest Code Status on File) Date Activated Date Inactivated Comments 09/16/2011 1:25 AM 09/17/2011 4:42 AM Care Teams Operations Superintendent Relationship Specialty Start Date End Date Stephen Mccloud DO [address] [place] [address] PCP - General 10/16/08 [place] [address] [place] [address] Orthopedic Surgery 09/25/17 [place] [address] [place] [address] Orthopedic Surgery 09/25/17
== END 2025-04-23 14:08 | disposition home or self-care (01) ==
DX: M79.89 Other specified soft tissue disorders (principal)
CPT/HCPCS: 93971